=== PATIENT | female | born 1990 | race Caucasian/White ===

== ENCOUNTER 2018-07-17 10:29 | Emergency (ER) | payer MEDICAID ==
[2018-07-17 10:42] VITALS: BMI 22.3
[2018-07-17 10:44] VITALS: PULSE 65
--- NOTE | 2018-07-17 11:08 | C.PDOC ---
History Of Present Illness 28 y/o female with no PMHx presents to the ED for evaluation of intermittent abdominal pain for the past 3 months. Patient describes pain as crampy in nature, localized to the lower abdomen. Associated with intermittent nausea and vomiting, including 4 episodes this morning, which was not improved after PO Zofran at home. She also reports 1 episode of diarrhea yesterday, which was watery and non-bloody. States she has had multiple prior ED visits at [facility], but never had any imaging and was discharged home with Zofran. States for the last 2 months, she has menstruated twice per month. She reports menstruating from 07/03- 07/09 and developed vaginal spotting again today. Otherwise patient denies any chest pain, SOB, fevers, chills, back pain, urinary symptoms, vaginal discharge, odor, or other complaints. Time Seen by Provider: 07/17/18 10:53 Chief Complaint (Nursing): Abdominal Pain History Per: Patient History/Exam Limitations: no limitations Onset/Duration Of Symptoms: Intermittent Episodes Current Symptoms Are (Timing): Still Present Location Of Pain/Discomfort: Suprapubic Associated Symptoms: Nausea, Vomiting, Diarrhea Exacerbating Factors: None Past Medical History Reviewed: Historical Data, Nursing Documentation, Vital Signs Vital Signs: Last Vital Signs Temp 97.5 F L 07/17/18 10:42 Pulse 65 07/17/18 10:42 Resp 20 07/17/18 10:42 BP 101/65 07/17/18 10:42 Pulse Ox 100 07/17/18 10:42 - Medical History PMH: No Chronic Diseases Surgical History: Family History: States: No Known Family Hx - Social History Hx Alcohol Use: Yes Hx Substance Use: No - Immunization History Hx Tetanus Toxoid Vaccination: No Hx Influenza Vaccination: No Hx Pneumococcal Vaccination: No Review Of Systems Except As Marked, All Systems Reviewed And Found Negative. Constitutional: Negative for: Fever, Chills Eyes: Negative for: Vision Change ENT: Negative for: Nose Congestion, Throat Pain Cardiovascular: Negative for: Chest Pain, Palpitations, Light Headedness Respiratory: Negative for: Cough, Shortness of Breath Gastrointestinal: Positive for: Nausea, Vomiting, Abdominal Pain (lower), Diarrhea. Negative for: Hematochezia Genitourinary: Positive for: Vaginal Bleeding, Other (metrorrhagia). Negative for: Dysuria, Frequency Musculoskeletal: Negative for: Neck Pain, Back Pain Skin: Negative for: Rash Neurological: Negative for: Weakness, Numbness, Headache, Dizziness Physical Exam - Physical Exam Appears: Well, Non-toxic, No Acute Distress Skin: Normal Color, Warm, Dry, No Rash Head: Atraumatic, Normacephalic Eye(s): bilateral: Normal Inspection, PERRL, EOMI Nose: Normal Oral Mucosa: Moist Throat: Normal Neck: Normal ROM, Supple Chest: Symmetrical Cardiovascular: Rhythm Regular, No Murmur Respiratory: Normal Breath Sounds, No Accessory Muscle Use, Other (No respiratory distress) Gastrointestinal/Abdominal: Bowel Sounds (normoactive), Soft, Tenderness (mild diffuse tenderness, worse at periumbilical area), No Guarding, No Rebound Back: Normal Inspection, No CVA Tenderness Pelvic: Normal External Exam, Normal Bimanual Exam, Vaginal Bleeding, No Vaginal Discharge, No Cervical Motion Tenderness, No Adnexal Tenderness, No Tender Uterus Extremity: Normal ROM, Capillary Refill (<2s) Extremity: Bilateral: Atraumatic, Normal Color And Temperature Pulses: Left Radial: Normal, Right Radial: Normal Neurological/Psych: Oriented x3, Normal Speech, Normal Motor, Normal Sensation Gait: Steady ED Course And Treatment - Laboratory Results Result Diagrams: 07/17/18 11:45 07/17/18 11:45 O2 Sat by Pulse Oximetry: 100 (RA) Pulse Ox Interpretation: Normal - CT Scan/US Pelvic/Transvaginal US Other Rad Studies (CT/US): Read By Radiologist, Radiology Report Reviewed CT/US Interpretation: Accession No. : [id number]. Patient Name / ID : ABIMBOLA ALVARADO / [id number]. Exam Date : 07/17/2018 11:50:09 ( Approved ). Study Comment : Sex / Age : F / 28Y. Creator : Chantal Valladares MD. Dictator : Chantal Valladares MD. Ju[employer]aging Machines Setter : Shirring Machine Operator Automatic : Chantal Valladares MD. Approver2 : Report Date : 07/17/2018 12:40:19. My Comment : . Date of service: 07/17/2018. HISTORY: vaginal bleeding, pain. COMPARISON: None available. TECHNIQUE: Transabdominal and transvaginal pelvic ultrasound was performed. FINDINGS: UTERUS: Measures 7.5 x 3.5 x 4.8 cm. Anteverted, normal in size and appearance. No fibroid or other mass lesion seen. ENDOMETRIUM: Measures 3.4 mm in diameter. Normal in appearance. CERVIX: No cervical abnormality identified. RIGHT OVARY: Measures 2.8 x 1.0 x 1.9 cm. No solid mass. Normal flow. LEFT OVARY: Measures 2.8 x 1.9 x 2.2 cm. No solid mass. Normal flow. FREE FLUID: No significant free fluid noted. OTHER FINDINGS: None. IMPRESSION: Unremarkable pelvic ultrasound. Abdomen/Pelvis CT Other Rad Studies (CT/US): Read By Radiologist, Radiology Report Reviewed CT/US Interpretation: Accession No. : [id number]. Patient Name / ID : ABIMBOLA ALVARADO / [id number]. Exam Date : 07/17/2018 15:06:44 ( Approved ). Study Comment : Sex / Age : F / 28Y. Creator : Chantal Valladares MD. Dictator : Chantal Valladares MD. Juice Packaging Machines Setter : Shirring Machine Operator Automatic : Chantal Valladares MD. Approver2 : Report Date : 07/17/2018 15:45:46. My Comment : . Date of service: 07/17/2018. PROCEDURE: CT Abdomen and Pelvis with contrast. HISTORY: generalized abd pain, vomiting. COMPARISON: None available. TECHNIQUE: CT scan of the abdomen and pelvis was performed after administration of intravenous contrast. Oral contrast was administered. Coronal and sagittal reformatted images were obtained. Contrast dose: 100 mL Visipaque 320. Radiation dose: Total exam DLP = 309.27 mGy-cm. This CT exam was performed using one or more of the following dose reduction techniques: Automated exposure control, adjustment of the mA and/or kV according to patient size, and/or use of iterative reconstruction prakash hnique. FINDINGS: LOWER THORAX: The visualized lungs are clear. LIVER: Normal in size with homogeneous enhancement. No gross lesion or ductal dilatation. GALLBLADDER AND BILE DUCTS: Partially contracted. No calcified gallstones, wall thickening or pericholecystic fluid. PANCREAS: Normal in size with homogeneous enhancement. No gross lesion or ductal dilatation. SPLEEN: Normal in size and appearance. ADRENALS: No discrete nodule. KIDNEYS AND URETERS: Normal in size with homogeneous enhancement. No hydronephrosis. No solid mass. VASCULATURE: No aortic aneurysm. There are no aortic atherosclerotic calcifications or mural plaque present. BOWEL: The small bowel loops are normal in caliber. There is apparent mild circumferential mural thickening in the descending colon, sigmoid colon and rectum. No bowel obstruction. APPENDIX: Normal appendix. PERITONEUM: No free fluid. No free air. LYMPH NODES: No enlarged lymph nodes. BLADDER: Well distended and normal in appearance. REPRODUCTIVE: The uterus is normal in size. BONES: No acute fracture. Within normal limits for the patient's age. OTHER FINDINGS: None. IMPRESSION: Apparent mild circumferential mural thickening in the descending colon, sigmoid colon and rectum is nonspecific and could be related to underdistention however acute nonspecific infectious/inflammatory colitis and proctitis are also differential considerations. Clinical follow-up is advised. Medical Decision Making Medical Decision Making: Impression: Intermittent abdominal pain, Vomiting, Metrorrhagia Initial Plan: - Blood work - UA - UDS - Lipase - PTT/PT - Urinalysis - Urine culture - IV fluids x 1 bolus - 4 mg IV Zofran - Pending Pelvic US and Abd/Pelvis CT scan CT ordered with PO and IV contrast secondary to BMI < 25. Labwork reviewed, unremarkable Ultrasound is unremarkable. Still pending CT and PO contrast. 16:05 CT findings reviewed, counseled patient regarding diagnosis of colitis. Most likely inflammatory secondary to length of symptoms and intermittent quality. Advised to keep a food and symptom diary in order to find triggers. Discussed with ED attending Dr. Goldman, who agrees with plan of care and disposition. Patient empirically treated with IM Rocephin and PO Zithromax, as she was tested for GC/Chlamydia during the visit today. Plan is to d/c patient home, advised to follow up with PMD and GI, as well as OBGYN Diagnostic testing results and plan of care discussed with patient. Strict instructions given regarding prescription use, importance of followup, and signs/symptoms to return to ER including intractable pain, fever, chills, or any other new/worsening symptoms. Pt verbalized understanding of discussion. Patient is A&Ox3, ambulating with steady gait, with vital signs stable for discharge. Disposition Counseled Patient/Family Regarding: Studies Performed, Diagnosis, Need For Followup - Disposition Referrals: [facility] [Outside] [facility] [Outside] Charlene Hernandez DO [Staff Provider] - Josse Coleman MD [Staff Provider] - Disposition: HOME/ ROUTINE Disposition Time: 16:45 Condition: STABLE Additional Instructions: Increase fluids Keep food and symptom diary Followup with GI within 2 days Followup with OBGYN within 2 days Followup with primary within 2 days Return to ER with any new/worsening symptoms Instructions: Colitis, Acute Abdomen (Belly Pain), Adult (DC) Forms: General Discharge Instructions, [facility] (Pashto), Work Excuse - POA Present On Arrival: None - Clinical Impression Clinical Impression: Colitis - 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 - Scribe Statement The provider has reviewed the documentation as recorded by the Scribe Ely Ann All medical record entries made by the Scribe were at my direction and personally dictated by me. I have reviewed the chart and agree that the record accurately reflects my personal performance of the history, physical exam, medical decision making, and the department course for this patient. I have also personally directed, reviewed, and agree with the discharge instructions and disposition.
[2018-07-17] MEDS ORDERED: Sodium Chloride 0.9% 1,000 ML IV ONE (11:09)
[2018-07-17 11:49] LABS: BASO % 0.3 % (0.0-2.0); EOS # 0.1 K/uL (0.0-0.7); EOS % 0.6 % (0.0-4.0); HEMOGLOBIN 12.3 g/dL (11.0-16.0); LYMPH # 1.7 K/uL (1.0-4.3); LYMPH % 17.5 % (20.0-40.0); MEAN CELL VOLUME 97.6 fL (81.0-99.0); MEAN CORPUSCULAR HEMOGLOBIN 33.1 pg (27.0-31.0); MEAN PLATELET VOLUME 8.7 fL (7.2-11.7); MONO # 0.5 K/uL (0.0-0.8); MONO % 5.7 % (0.0-10.0); NEUT # 7.3 K/uL (1.8-7.0); NEUT % 75.9 % (50.0-75.0); RBC 3.71 Mil/uL (3.80-5.20); RED CELL DISTRIBUTION WIDTH 13.3 % (11.5-14.5); WHITE BLOOD COUNT 9.6 K/uL (4.8-10.8)
[2018-07-17 12:03] LABS: BLOOD UREA NITROGEN 11 mg/dL (7-17); GFR NON-AFRICAN AMERICAN > 60
[2018-07-17 12:04] LABS: ALB/GLOB RATIO 1.7 (1.0-2.1); ALBUMIN 4.4 g/dL (3.5-5.0); ALT/SGPT 20 U/L (9-52); AST/SGOT 23 U/L (14-36); CALCIUM 8.2 mg/dl (8.6-10.4); LIPASE 40 U/L (23-300)
[2018-07-17 12:04] LABS: INR 1.2
[2018-07-17 12:09] LABS: SQUAMOUS EPITHIAL 1 /hpf (0-5); URINE BILIRUBIN NEGATIVE (NEGATIVE); URINE BLOOD 3+ (NEGATIVE); URINE CLARITY Clear (Clear); URINE GLUCOSE (UA) NORMAL (Normal); URINE LEUKOCYTE ESTERASE NEG Leu/uL (Negative); URINE PROTEIN NEGATIVE (NEGATIVE); URINE UROBILINOGEN NORMAL mg/dL (0.2-1.0)
[2018-07-17 12:22] LABS: BARBITURATES, UR NEGATIVE (NEGATIVE); BENZODIAZEPINES, UR NEGATIVE (NEGATIVE); OPIATES, UR NEGATIVE (NEGATIVE); PHENCYCLIDINE, UR NEGATIVE (NEGATIVE)
[2018-07-17 12:29] LABS: URINE COLOR Yellow (YELLOW)
[2018-07-17] MEDS ORDERED: Sodium Chloride 0.9% 1,000 ML ONE (12:29)
--- NOTE | 2018-07-17 12:44 | US ---
Date of service: 07/17/2018 HISTORY: vaginal bleeding, pain COMPARISON: None available. TECHNIQUE: Transabdominal and transvaginal pelvic ultrasound was performed. FINDINGS: UTERUS: Measures 7.5 x 3.5 x 4.8 cm. Anteverted, normal in size and appearance. No fibroid or other mass lesion seen. ENDOMETRIUM: Measures 3.4 mm in diameter. Normal in appearance. CERVIX: No cervical abnormality identified. RIGHT OVARY: Measures 2.8 x 1.0 x 1.9 cm. No solid mass. Normal flow. LEFT OVARY: Measures 2.8 x 1.9 x 2.2 cm. No solid mass. Normal flow. FREE FLUID: No significant free fluid noted. OTHER FINDINGS: None. IMPRESSION: Unremarkable pelvic ultrasound.
[2018-07-17] MEDS ORDERED: Iohexol 240 (50 ml) PO ONE (13:10)
[2018-07-17] MEDS ORDERED: Iohexol 240 (50 ml) ONE (13:12)
[2018-07-17] MEDS ORDERED: Iodixanol 320 MG/ML 100 ML BOTTLE IV ONE (14:32)
--- NOTE | 2018-07-17 15:49 | CT ---
Date of service: 07/17/2018 PROCEDURE: CT Abdomen and Pelvis with contrast HISTORY: generalized abd pain, vomiting COMPARISON: None available. TECHNIQUE: CT scan of the abdomen and pelvis was performed after administration of intravenous contrast. Oral contrast was administered. Coronal and sagittal reformatted images were obtained. Contrast dose: 100 mL Visipaque 320 Radiation dose: Total exam DLP = 309.27 mGy-cm. This CT exam was performed using one or more of the following dose reduction techniques: Automated exposure control, adjustment of the mA and/or kV according to patient size, and/or use of iterative reconstruction technique. FINDINGS: LOWER THORAX: The visualized lungs are clear. LIVER: Normal in size with homogeneous enhancement. No gross lesion or ductal dilatation. GALLBLADDER AND BILE DUCTS: Partially contracted. No calcified gallstones, wall thickening or pericholecystic fluid. PANCREAS: Normal in size with homogeneous enhancement. No gross lesion or ductal dilatation. SPLEEN: Normal in size and appearance. ADRENALS: No discrete nodule. KIDNEYS AND URETERS: Normal in size with homogeneous enhancement. No hydronephrosis. No solid mass. VASCULATURE: No aortic aneurysm. There are no aortic atherosclerotic calcifications or mural plaque present. BOWEL: The small bowel loops are normal in caliber. There is apparent mild circumferential mural thickening in the descending colon, sigmoid colon and rectum. No bowel obstruction. APPENDIX: Normal appendix. PERITONEUM: No free fluid. No free air. LYMPH NODES: No enlarged lymph nodes. BLADDER: Well distended and normal in appearance. REPRODUCTIVE: The uterus is normal in size. BONES: No acute fracture. Within normal limits for the patient's age. OTHER FINDINGS: None. IMPRESSION: Apparent mild circumferential mural thickening in the descending colon, sigmoid colon and rectum is nonspecific and could be related to underdistention however acute nonspecific infectious/inflammatory colitis and proctitis are also differential considerations. Clinical follow-up is advised.
[2018-07-17] MEDS ORDERED: cefTRIAXone (Rocephin) 250 mg Inj IM STA (16:09)
[2018-07-17 16:26] VITALS: BP 104/69; RESP 14; TEMP 98.7
[2018-07-17 18:59] VITALS: O2SAT 100
== END 2018-07-17 16:56 | disposition home or self-care (01) ==
LOC: C.ER 10:29
DX: K52.9 Noninfective gastroenteritis and colitis, unspecified (principal)
CPT/HCPCS: 74177; 76830; 76856; 80053; 80324; 80345; 80346; 80349; 80353; 80358; 80361; 81001; 81025; 83690; 83992; 85025; 85610; 85730; 87086; 87491; 87591; 96361; 96372; 96374; 99284; J0696; J2405; J7030; Q9966; Q9967